=== PATIENT | female | born 1990 | race African-American/Black ===

== ENCOUNTER 2017-03-26 13:20 | Emergency (ER) | payer MEDICAID ==
[~2017-03-26] VITALS: Ht 157.5 cm; Wt 74.8 kg
--- NOTE | 2017-03-26 13:38 | NUR ---
SELF PRESENT TO ED DU TO LLQ ABD PAIN, RADIATING TO THE BACK SINCE THIS MORNING, POSITIVE HCG YESTERDAY. PT IS AAO3. APPEARS IN NO APPARENT DISTRESS,RESPIRATION EVEN AND UNLABORED. AFEBRILE. VSS
--- NOTE | 2017-03-26 13:59 | NUR ---
URINE SAMPLE SENT TO LAB
[2017-03-26 14:30] LABS: APPEARANCE,URINE Turbid (CLEAR); BLOOD, URINE Negative Ery/uL (NEGATIVE); COLOR,URINE Dark (YELLOW); KETONES,URINE Trace (NEGATIVE); LEUKOCYTE ESTERASE ,URINE Negative (NEGATIVE); NITRITE, URINE Negative (NEGATIVE); PH,URINE 5.5 (5.0-8.0); PROTEIN,URINE Trace mg/dl (NEGATIVE); UGLUCOSE Negative (NEGATIVE); UROBILINOGEN,URINE 0.2 EU/dL (0.2)
[2017-03-26 14:32] LABS: BILIRUBIN,URINE SMALL (NEGATIVE); PREGNANCY TEST URINE QUAL POSITIVE (NEGATIVE)
[2017-03-26 14:39] LABS: BASOPHILS # (AUTO) 0.1 /CMM (0.0-0.2); EOSINOPHILS # (AUTO) 0.4 /CMM (0.0-0.7); EOSINOPHILS % (AUTO) 5.3 % (0.0-6.0); HEMATOCRIT 36 % (33-45); HEMOGLOBIN 12.3 g/dL (11.5-14.8); LYMPHOCYTES # (AUTO) 2.5 /CMM (0.8-4.8); MEAN CORPUSCULAR HEMOGLOBIN 29 PG (26.0-33.0); MEAN CORPUSCULAR HGB CONC 34 g/dl (31.0-36.0); MEAN CORPUSCULAR VOLUME 86 fL (82-100); MONOCYTES # (AUTO) 0.3 /CMM (0.1-1.30); MONOCYTES % (AUTO) 5.2 % (2.0-12.0); NEUTROPHILS # (AUTO) 3.4 /CMM (1.8-8.9); NEUTROPHILS % (AUTO) 50.5 % (43.0-81.0); PLATELET COUNT (AUTO) 446 /CMM (150-450); RDW COEFFICIENT OF VARIATION 12.8 (11.5-15.0); RED BLOOD CELL COUNT(AUTO) 4.22 MIL/uL (4.0-5.2); WHITE BLOOD COUNT (AUTO) 6.7 K/uL (4.3-11.0)
[2017-03-26 14:43] LABS: BACTERIA,URINE Rare /HPF (None Seen); MUCUS,URINE Few /LPF (None Seen); RBC,URINE 0-3 /HPF (0-2); SQUAMOUS EPITHELIAL CELL,UR Few /HPF (None Seen)
[2017-03-26 14:44] LABS: CREATININE 0.9 mg/dL (0.6-1.3); POTASSIUM 3.8 mmol/L (3.5-5.1)
[2017-03-26] MEDS: ONDANSETRON 4 MG TAB.RAPDIS SL ONE (14:50)
[2017-03-26 15:12] LABS: CALCIUM, SERUM 8.9 mg/dL (8.5-10.1)
[2017-03-26 15:20] VITALS: BP 124/68
== END 2017-03-26 15:41 | disposition home or self-care (01) ==
LOC: ER 13:29
DX: O26.851 Spotting complicating pregnancy, first trimester (principal); R10.30 Lower abdominal pain, unspecified; Z3A.01 Less than 8 weeks gestation of pregnancy; N83.12 Corpus luteum cyst of left ovary
CPT/HCPCS: 36415; 76856; 80048; 81001; 84702; 84703; 85025; 99285; A4606; Z7610; 81000-TC